=== PATIENT | male | born 1995 | race Two or more races ===

== ENCOUNTER 2019-12-01 16:14 | Emergency (ER) | payer SELFPAY ==
[2019-12-01 16:31] VITALS: BP 163/97
[2019-12-01] MEDS ORDERED: predniSONE 20 MG TABLET PO STA (17:00)
[2019-12-01] MEDS ORDERED: CYCLOBENZAPRINE 10 MG TABLET PO STA (17:00)
[2019-12-01] MEDS ORDERED: HYDROcod/ACETAM 5/325 MG TABLET PO STA (17:00)
--- NOTE | 2019-12-01 17:03 | ED Physician Documentation ---
PD HPI BACK PAIN - Stated complaint Stated Complaint: BACK/RT LEG PX - Chief complaint Chief Complaint: Back Pain - History obtained from History obtained from: Patient, Friend, Other (cyracom tablet) - Additional information Additional information: For about 2 weeks he has had right-sided back pain radiating down into the right buttock. There is some numbness in that leg. He denies saddle anesthesia or incontinence but the Pain does radiate into the right testicle. No fevers or chills. No recent injuries. Review of Systems Constitutional: reports: Reviewed and negative Eyes: reports: Reviewed and negative Ears: reports: Reviewed and negative Nose: reports: Reviewed and negative Throat: reports: Reviewed and negative PD PAST MEDICAL HISTORY - Present Medications Home Medications: Ambulatory Orders Medication Instructions Recorded Confirmed Cyclobenzaprine [Flexeril] 10 mg PO TID PRN #20 tablet 12/01/19 Hydrocodone/Acetaminophen 1 - 2 tab PO Q6H PRN #15 tablet 12/01/19 [Hydrocodone-Acetamin 5-325 mg] predniSONE [Deltasone] 20 mg PO [id number] #21 tab 12/01/19 PD ED PE NORMAL - Vitals Vital signs reviewed: Yes - General General: Alert and oriented X 3, No acute distress - Male Male : Other (Normal male genitalia, no hernia mass, no testicular tenderness or swelling.) - Back Back: No spinal TTP - Extremities Extremities: Other (Mildly decreased sensation in the right thigh compared to the left, also diminished right L4 reflex compared to the left. Gait is normal.) - Neuro Neuro: Alert and oriented X 3, Normal speech Results - Vitals Vitals: Vital Signs - 24 hr 12/01/19 16:21 Temperature 37 C Heart Rate 77 Respiratory 18 Rate Blood Pressure 163/97 H O2 Saturation 97 Oxygen O2 Source Room air PD MEDICAL DECISION MAKING - ED course ED course: This patient has seemingly uncomplicated musculoskeletal back pain. The patient has no "red flags." Specifically denies IV drug use, fevers, incontinence, saddle anesthesia. Spinal epidural abscess was considered, given that the patient has no fever, is not diabetic, has no spinal tenderness, does not use IV drugs, and has no bilateral neurologic symptoms, the diagnosis of spinal epidural abscess is considered exceedingly unlikely. Departure - Departure Disposition: 01 Home, Self Care Clinical Impression: Right sided sciatica Condition: Good Record reviewed to determine appropriate education?: Yes Instructions: ED Sciatica Follow-Up: [facility] [Provider Group] Prescriptions: predniSONE [Deltasone] 20 mg PO [id number] #21 tab Cyclobenzaprine [Flexeril] 10 mg PO TID PRN #20 tablet PRN Reason: Spasms Hydrocodone/Acetaminophen [Hydrocodone-Acetamin 5-325 mg] 1 - 2 tab PO Q6H PRN #15 tablet PRN Reason: Pain Forms: Activity restrictions
== END 2019-12-01 17:23 | disposition home or self-care (01) ==
LOC: ED 16:14
DX: M54.31 Sciatica, right side (principal); N50.811 Right testicular pain
CPT/HCPCS: 99283; 99284; A9270; J7512

== ENCOUNTER 2020-02-23 02:56 | Emergency (ER) | payer SELFPAY ==
[2020-02-23] MEDS: KETOROLAC 30 MG/ML VIAL IVP STA (04:13)
[2020-02-23 04:15] LABS: BASOPHILS # (AUTO) 0.1 10^3/uL (0.0-0.1); BASOPHILS % (AUTO) 0.6 %; EOSINOPHILS # (AUTO) 0.1 10^3/uL (0.0-0.7); EOSINOPHILS % (AUTO) 1.7 %; HGB - HEMOGLOBIN 16.3 g/dL (14.0-18.0); LYMPHOCYTES # (AUTO) 3.4 10^3/uL (1.5-3.5); LYMPHOCYTES % (AUTO) 40.8 %; MEAN CORPUSCULAR HEMOGLOBIN 31.3 pg (27.0-31.0); MEAN CORPUSCULAR VOLUME 89.6 fL (80.0-94.0); MEAN PLATELET VOLUME 9.5 fL (7.4-11.4); MONOCYTES # (AUTO) 0.7 10^3/uL (0.0-1.0); MONOCYTES % (AUTO) 8.9 %; NEUTROPHILS % (AUTO) 47.8 %; PLT - PLATELET COUNT 229 10^3/uL (130-450); WHITE BLOOD COUNT 8.4 x10^3/uL (4.8-10.8)
[2020-02-23] MEDS: diazePAM INJ 5 MG/ML SYRINGE IVP STA (04:15)
[2020-02-23] MEDS: SODIUM CHLORIDE 0.9% 1,000 ML IV STA (04:23)
[2020-02-23 04:27] LABS: ALBUMIN 4.2 g/dL (3.2-5.5); ALBUMIN/GLOBULIN RATIO 1.4 (1.0-2.2); BILIRUBIN,TOTAL 0.9 mg/dL (0.2-1.0); CALCIUM 9.2 mg/dL (8.5-10.3); CREATININE 0.8 mg/dL (0.6-1.2); TOTAL PROTEIN 7.2 g/dL (6.7-8.2)
--- NOTE | 2020-02-23 05:04 | ED Physician Documentation ---
History of Present Illness - Stated complaint Stated Complaint: NECK PX - Chief complaint Chief Complaint: General - History obtained from History obtained from: Patient - Additonal information Additional information: Patient comes emergency department complaining of tension in his right back and neck and a right-sided headache. The patient states he has pain radiating down both legs. He states he was trying to sleep tonight when he woke up feeling that his whole body was cold and tingling. He states he had a pain in his right arm and that because of his headache he could not go back to sleep. He denies cough, fever, shortness of breath, chest pain, or abdominal symptoms. He states he has had feeling somewhat similar to this before, but this is the first time he has had the whole body tingling and numbness. Patient states he is afraid to go back to sleep because he is afraid his neck and head will keep hurting. The patient states he is under a lot of stress because he has just come to the [facility] in July and is still waiting to hear whether asylum will be granted him. He is from [place] and most of his family is back in [place] and he worries about them a lot. Patient states he has an aunt who lives here and that he has lived both with her and with friends. Patient states he has not yet been able to get a job and he is stressed about finances. He is otherwise h ealthy. He does not take any medications for anything. No other complaints at this time. Patient is able to control his bowels and bladder. He has not been around any sick contacts. Patient is Tongan-speaking only and entire HPI is taken through data report analyst. Review of Systems Ten Systems: 10 systems reviewed and negative Constitutional: reports: Chills. denies: Fever Eyes: reports: Reviewed and negative Ears: reports: Reviewed and negative Nose: reports: Reviewed and negative Throat: reports: Reviewed and negative Cardiac: reports: Reviewed and negative. denies: Chest pain / pressure Respiratory: reports: Reviewed and negative. denies: Dyspnea GI: reports: Reviewed and negative : reports: Reviewed and negative Skin: reports: Reviewed and negative Musculoskeletal: reports: Neck pain, Back pain Neurologic: reports: Numbness, Headache. denies: Generalized weakness, Focal weakness Psychiatric: reports: Reviewed and negative Endocrine: reports: Reviewed and negative Immunocompromised: reports: Reviewed and negative PD PAST MEDICAL HISTORY - Past Medical History : Kidney stones - Past Surgical History Past Surgical History: No - Present Medications Home Medications: Ambulatory Orders Medication Instructions Recorded Confirmed No Known Home Medications 02/23/20 02/23/20 - Allergies Allergies/Adverse Reactions: Allergies Allergy/AdvReac Type Severity Reaction Status Date / Time No Known Drug Allergies Allergy Verified 02/23/20 03:16 - Social History Does the pt smoke?: No Smoking Status: Never smoker Does the pt drink ETOH?: Yes Does the pt have substance abuse?: No PD ED PE NORMAL - Vitals Vital signs reviewed: Yes - General General: Alert and oriented X 3, Well developed/nourished, Other (Patient appears mildly anxious, but otherwise in no apparent distress.) - HEENT HEENT: PERRL - Neck Neck: Supple, no meningeal sign - Cardiac Cardiac: RRR, No murmur - Respiratory Respiratory: No respiratory distress, Clear bilaterally - Abdomen Abdomen: Soft, Non tender, Non distended - Back Back: No spinal TTP, Other (Muscle tension and diffuse tenderness noted over entire right back musculature, extending up into the patient's right neck. No bony tenderness. No nuchal rigidity.) - Derm Derm: Normal color, Warm and dry, No rash - Extremities Extremities: No deformity, No edema, No calf tenderness / cord - Neuro Neuro: Alert and oriented X 3, cable engineer 2-12 intact, No motor deficit, No sensory deficit, Normal speech - Psych Psych: Normal affect, Other (Mild anxiety.) Results - Vitals Vitals: Vital Signs - 24 hr 02/23/20 02/23/20 03:00 04:41 Temperature 36.4 C L 36.8 C Heart Rate 78 63 Respiratory 18 16 Rate Blood Pressure 175/97 H 127/70 O2 Saturation 98 98 Oxygen O2 Source Room air - Labs Labs: Laboratory Tests 02/23/20 02/23/20 02/23/20 04:07 04:07 04:07 WBC 8.4 RBC 5.20 Hgb 16.3 Hct 46.6 MCV 89.6 MCH 31.3 H MCHC 35.0 RDW 12.0 Plt Count 229 MPV 9.5 Neut # (Auto) 4.0 Lymph # (Auto) 3.4 [place] # (Auto) 0.7 Eos # (Auto) 0.1 Baso # (Auto) 0.1 Absolute Nucleated RBC 0.00 Nucleated RBC % 0.0 Sodium 136 Potassium 3.5 Chloride 99 L Carbon Dioxide 24 Anion Gap 13.0 BUN 14 Creatinine 0.8 Estimated GFR (MDRD) 119 Glucose 95 Calcium 9.2 Total Bilirubin 0.9 AST 21 ALT 29 Alkaline Phosphatase 78 Total Protein 7.2 Albumin 4.2 Globulin 3.0 Albumin/Globulin Ratio 1.4 Lipase 26 TSH 3.75 PD MEDICAL DECISION MAKING - ED course Complexity details: reviewed old records, reviewed results, re-evaluated patient, considered differential, d/w patient ED course: I discussed with the patient via data report analyst that his symptoms do not indicate a serious condition, and I suspect that the patient is suffering from quite a bit of stress and anxiety over the various issues and uncertainties in his life. I have advised the patient over the course of a very long conversation that I will treat him symptomatically and that I will also check basic blood work to make sure that there is not something else going that we could touch. However, I suspect his work-up will be negative. The patient also has been stressed out because he was given some paperwork for insurance the last time he was here but could not read it as he does not speak any [place], and was not able to turn it in. Ultimately, he lost the paperwork, and he is very concerned about not being able to pay his bill. I have discussed with the patient that we have liaisons here at the hospital who can help him with his financial concerns and services that can reduce his bill. The patient has received a liter of IV fluid here, as well as Toradol and Valium and is feeling better. His labs are unremarkable. I have given him 3 separate resource sheets, including one for Tongan-speaking resources here in the hospital. We have discussed home management of the symptoms, as well the usual indications for return. Departure - Departure Disposition: 01 Home, Self Care Clinical Impression: Tension headache, Neck muscle spasm, Back spasm, Anxiety Sciatica Qualifiers: Laterality: right Qualified Code(s): M54.31 - Sciatica, right side Condition: Stable Instructions: ED Stress React, ED Spasm Back No Trauma, ED Headache Tension, ED Sciatica Comments: All of your tests look good. I think most of the symptoms you are experiencing are from stress and anxiety. Please contact the resources you have been given for Tongan speaking individuals for help getting settled here and finding the support you need. Elida leah analisis de be se zachariah ceci. Creo que la majoria de los sintomas que esta experimentando se deben al estres y la ansiedad. Por favor comuniquese con los recursos que se le degroot proporcionado para personas de habla hispana para que lo ayuden a estabecerse aqui y encontrar el apoyo que necesita.
[2020-02-23 05:35] VITALS: BP 116/82
== END 2020-02-23 05:35 | disposition home or self-care (01) ==
LOC: ED 02:56
DX: M54.31 Sciatica, right side (principal); F41.9 Anxiety disorder, unspecified; G44.209 Tension-type headache, unspecified, not intractable; Z63.79 Other stressful life events affecting family and household
CPT/HCPCS: 36415; 80053; 83690; 84443; 85025; 96361; 96374; 96375; 99284

== ENCOUNTER 2020-03-19 15:23 | Emergency (ER) | payer SELFPAY ==
[2020-03-19] MEDS ORDERED: KETOROLAC 30 MG/ML VIAL IVP STA (15:49)
[2020-03-19] MEDS ORDERED: LORazepam 2 MG/ML VIAL IVP STA (15:49)
--- NOTE | 2020-03-19 15:52 | ED Physician Documentation ---
PD HPI BACK PAIN - Stated complaint Stated Complaint: LOW BACK PX - History obtained from History obtained from: Patient - Additional information Additional information: Gentleman with benign past medical history presents for a multitude of complaints. History was taken with the aid of a R2integrated language interpreter, [id number] and also reviewed the chart. He is gentleman who is here from [facility], he has had 2 years of right-sided intermittent testicular pain associated with dysuria. He has had subacute right-sided back pain "sciatica" and dysuria. He denies weight loss. When asked which of these sites hurts the most of the headache, back pain, testicular pain he is unable to state which is the worst. He states that they are all the worse. Previous work-ups and visits have been benign. Review of Systems Ten Systems: 10 systems reviewed and negative Constitutional: reports: Fever (tactile last night), Fatigue Ears: denies: Ear pain Nose: denies: Rhinorrhea / runny nose Cardiac: denies: Chest pain / pressure, Palpitations Respiratory: denies: Dyspnea, Cough GI: denies: Nausea, Vomiting : reports: Dysuria PD PAST MEDICAL HISTORY - Past Medical History : Kidney stones - Past Surgical History Past Surgical History: No - Present Medications Home Medications: Ambulatory Orders Medication Instructions Recorded Confirmed Gabapentin [Neurontin] 300 mg PO TID #30 capsule 03/19/20 - Allergies Allergies/Adverse Reactions: Allergies Allergy/AdvReac Type Severity Reaction Status Date / Time No Known Drug Allergies Allergy Verified 02/23/20 03:16 - Social History Does the pt smoke?: No Smoking Status: Never smoker Does the pt drink ETOH?: Yes Does the pt have substance abuse?: No PD ED PE NORMAL - Vitals Vital signs reviewed: Yes - General General: Alert and oriented X 3, Other (When talking he appears very comfortable but when he is not talking he is writhing in pain and moaning.) - HEENT HEENT: PERRL, EOMI - Neck Neck: Supple, no meningeal sign, No bony TTP - Cardiac Cardiac: RRR, No murmur - Respiratory Respiratory: No respiratory distress, Clear bilaterally - Abdomen Abdomen: Normal bowel sounds, Soft, Non tender - Male Male : Other (Normal scrotal exam) - Back Back: No CVA TTP, No spinal TTP, Other (TTP R low back muscular) - Derm Derm: Normal color, Warm and dry - Extremities Extremities: Other (The patient has equal and normal Achilles and patellar reflexes bilaterally. Normal sensation in all areas of the legs. Patient denies saddle anesthesia. Normal strength in flexion-extension at the ankles, knees, and flexion of the hips.) - Neuro Neuro: Alert and oriented X 3, Normal speech Results - Vitals Vitals: Vital Signs - 24 hr 03/19/20 03/19/20 03/19/20 15:39 16:06 16:35 Temperature 36.4 C L Heart Rate 74 67 75 Respiratory 18 18 18 Rate Blood Pressure 158/112 H 121/78 123/63 O2 Saturation 100 95 98 03/19/20 03/19/20 16:53 17:41 Temperature 36.4 C L Heart Rate 66 69 Respiratory 18 16 Rate Blood Pressure 104/60 122/65 O2 Saturation 98 100 Oxygen O2 Source Room air - Labs Labs: Laboratory Tests 03/19/20 03/19/20 03/19/20 16:00 16:00 16:00 WBC 6.9 RBC 5.06 Hgb 16.0 Hct 44.7 MCV 88.3 MCH 31.6 H MCHC 35.8 RDW 11.7 L Plt Count 221 MPV 10.0 Neut # (Auto) 3.5 Lymph # (Auto) 2.7 [place] # (Auto) 0.6 Eos # (Auto) 0.1 Baso # (Auto) 0.0 Absolute Nucleated RBC 0.00 Nucleated RBC % 0.0 ESR 1 Sodium 138 Potassium 3.7 Chloride 103 Carbon Dioxide 24 Anion Gap 11.0 BUN 20 Creatinine 1.0 Estimated GFR (MDRD) 91 Glucose 91 Calcium 9.1 Total Bilirubin 0.7 AST 25 ALT 28 Alkaline Phosphatase 81 C-Reactive Protein < 1.0 Total Protein 7.3 Albumin 4.6 Globulin 2.7 Albumin/Globulin Ratio 1.7 Lipase 26 Urine Color Urine Clarity Urine pH Ur Specific [place] Urine Protein Urine Glucose (UA) Urine Ketones Urine Occult Blood Urine Nitrite Urine Bilirubin Urine Urobilinogen Ur Leukocyte Esterase Ur Microscopic Review Urine Culture Comments Urine Opiates Screen Ur Oxycodone Screen Urine Methadone Screen Ur Propoxyphene Screen Ur Barbiturates Screen Ur Tricyclics Screen Ur Phencyclidine Scrn Ur Amphetamine Screen U Methamphetamines Scrn U Benzodiazepines Scrn Urine Cocaine Screen U Cannabinoids Screen 03/19/20 17:40 WBC RBC Hgb Hct MCV MCH MCHC RDW Plt Count MPV Neut # (Auto) Lymph # (Auto) Harris # (Auto) Eos # (Auto) Baso # (Auto) Absolute Nucleated RBC Nucleated RBC % ESR Sodium Potassium Chloride Carbon Dioxide Anion Gap BUN Creatinine Estimated GFR (MDRD) Glucose Calcium Total Bilirubin AST ALT Alkaline Phosphatase C-Reactive Protein Total Protein Albumin Globulin Albumin/Globulin Ratio Lipase Urine Color YELLOW Urine Clarity CLEAR Urine pH 7.5 Ur Specific [place] 1.020 Urine Protein NEGATIVE Urine Glucose (UA) NEGATIVE Urine Ketones NEGATIVE Urine Occult Blood NEGATIVE Urine Nitrite NEGATIVE Urine Bilirubin NEGATIVE Urine Urobilinogen 1 (NORMAL) Ur Leukocyte Esterase NEGATIVE Ur Microscopic Review NOT INDICATED Urine Culture Comments NOT INDICATED Urine Opiates Screen NEGATIVE Ur Oxycodone Screen NEGATIVE Urine Methadone Screen NEGATIVE Ur Propoxyphene Screen NEGATIVE Ur Barbiturates Screen NEGATIVE Ur Tricyclics Screen NEGATIVE Ur Phencyclidine Scrn NEGATIVE Ur Amphetamine Screen NEGATIVE U Methamphetamines Scrn NEGATIVE U Benzodiazepines Scrn POSITIVE H Urine Cocaine Screen NEGATIVE U Cannabinoids Screen POSITIVE H PD MEDICAL DECISION MAKING - ED course ED course: 25-year-old gentleman presents with subacute widespread complaints. Previous work-ups have suggested some level of anxiety. He always looks very comfortable when not interacting with him, talking on the phone, but when at the bedside if he is not talking he has excessive pain behavior. Given the lack of timely primary care follow-up a thorough work-up was done demonstrating normal labs including inflammatory markers, normal scrotal ultrasound, head CT with and without contrast and abdominal CT which were normal except for the possibility of an enlarged pituitary. Outpatient MRI is recommended. He is to continue his efforts to try to obtain timely primary care follow-up. Follow-up with conversation with hourly sign language interpreter [id number], he had extensive questions about insurance and getting in with primary care. We will have registration, talk to him about that. He felt much better though after the Toradol and Valium he was given here and is prescribed gabapentin. Departure - Departure Disposition: 01 Home, Self Care Clinical Impression: Anxiety, Tension headache, Right testicular pain Back pain Qualifiers: Back pain location: low back pain Chronicity: chronic Back pain laterality: right Sciatica presence: with sciatica Sciatica laterality: sciatica of right side Qualified Code(s): M54.41 - Lumbago with sciatica, right side Condition: Good Record reviewed to determine appropriate education?: Yes Instructions: ED Stress React, ED Sciatica Prescriptions: Gabapentin [Neurontin] 300 mg PO TID #30 capsule Comments: Your work-up today all looks great. All of your labs including inflammatory markers are normal. Ultrasound of your scrotum and testicle are normal. CAT scan of your head back and stomach are normal with the exception of a possibility of a large pituitary gland. You need to follow-up with a primary care physician to discuss an MRI of your head. We are not able to do this out of the emergency department. Return if worsening. Tu trabajo de pina cortez genial. Todos leah anlisis de laboratorio, incluidos los marcadores inflamatorios, son normales. La ecografa de camilo escroto y testculo es normal. La tomografa computarizada de la edmond, la espalda y el estmago son normales con la excepcin de la posibilidad de judith glndula pituitaria patricia. Debe hacer un seguimiento con un mdico de atencin primaria para analizar judith resonancia magntica de camilo edmond. No podemos hacer esto fuera del departamento de emergencias. Regrese si empeora.
[2020-03-19 16:10] LABS: BASOPHILS % (AUTO) 0.4 %; EOSINOPHILS # (AUTO) 0.1 10^3/uL (0.0-0.7); EOSINOPHILS % (AUTO) 1.2 %; LYMPHOCYTES # (AUTO) 2.7 10^3/uL (1.5-3.5); LYMPHOCYTES % (AUTO) 38.7 %; MEAN CORPUSCULAR HEMOGLOBIN 31.6 pg (27.0-31.0); MEAN CORPUSCULAR HGB CONC 35.8 g/dL (32.0-36.0); MEAN CORPUSCULAR VOLUME 88.3 fL (80.0-94.0); MONOCYTES # (AUTO) 0.6 10^3/uL (0.0-1.0); NEUTROPHILS # (AUTO) 3.5 10^3/uL (1.5-6.6); NEUTROPHILS % (AUTO) 51.3 %; PLT - PLATELET COUNT 221 10^3/uL (130-450); RED BLOOD COUNT 5.06 10^6/uL (4.70-6.10); RED CELL DISTRIBUTION WIDTH 11.7 % (12.0-15.0); WHITE BLOOD COUNT 6.9 x10^3/uL (4.8-10.8)
[2020-03-19] MEDS ORDERED: IOVERSOL 320 100 ML VIAL IVP ONE (16:11)
[2020-03-19 16:29] LABS: ALBUMIN 4.6 g/dL (3.2-5.5); ALBUMIN/GLOBULIN RATIO 1.7 (1.0-2.2); ALKALINE PHOSPHATASE 81 IU/L (42-121); ALT ALANINE AMINOTRANSFERASE 28 IU/L (10-60); AST ASPARTATE AMINOTRANSFERASE 25 IU/L (10-42); BILIRUBIN,TOTAL 0.7 mg/dL (0.2-1.0); BUN - BLOOD UREA NITROGEN 20 mg/dL (6-20); CALCIUM 9.1 mg/dL (8.5-10.3); CARBON DIOXIDE - CO2 24 mmol/L (21-32); CHLORIDE 103 mmol/L (101-111); GLUCOSE 91 mg/dL (70-100); LIPASE 26 U/L (22-51); SODIUM 138 mmol/L (135-145); TOTAL PROTEIN 7.3 g/dL (6.7-8.2)
[2020-03-19 16:34] LABS: CRP - C-REACTIVE PROTEIN < 1.0 mg/dL (0-1.0)
--- NOTE | 2020-03-19 17:23 | Ultrasound Report ---
PROCEDURE: Testicle w/Doppler INDICATIONS: R testicle pain TECHNIQUE: Real-time scanning was performed of the scrotum and testicles, with image documentation. Color and p ulse Doppler interrogation was performed of both testicles. COMPARISON: None. FINDINGS: Right: Testicle is normal in size at 4.9 x 2.2 x 2.9 cm, and homogenous in echotexture. Epididymis is normal in overall size and morphology. No hydrocele or varicoceles. Overlying scrotal skin is no rmal in thickness. Left: Testicle is normal in size at 4.5 x 2.0 x 2.6 cm, and homogeneous in echotexture. Epididymis is normal in overall size and morphology. No hydrocele or varicoceles. Overlying scrotal skin is no rmal in thickness. Doppler: Color and pulse Doppler demonstrate normal and symmetric arterial flow in both testicles. IMPRESSION: No sign of testicular mass or inflammation is present. No hydrocele or varicocele is found. Source of asymmetric right-sided testicular pain is not identified. The epididymis appears normal bilaterally also. Reviewed by: Frankie Morel MD on 03/19/2020 5:22 PM PST Approved by: Frankie Morel MD on 03/19/2020 5:22 PM PST Station ID: [id number]
[2020-03-19 17:46] LABS: MUDS CUTOFF CONCENTRATIONS CUTOFF CONC BELOW:
[2020-03-19 17:51] LABS: BILIRUBIN,URINE NEGATIVE (NEGATIVE); GLUCOSE, URINE (UA) NEGATIVE (NEGATIVE); KETONES,URINE (UA) NEGATIVE (NEGATIVE); LEUKOCYTE ESTERASE, URINE NEGATIVE (NEGATIVE); NITRITE,URINE NEGATIVE (NEGATIVE); OCCULT BLOOD,URINE NEGATIVE (NEGATIVE); PH,URINE 7.5 PH (5.0-7.5); PROTEIN,URINE NEGATIVE (NEGATIVE); UROBILINOGEN,URINE 1 (NORMAL) E.U./dL (NORMAL)
[2020-03-19 17:53] LABS: CLARITY,URINE CLEAR (CLEAR)
[2020-03-19 18:02] LABS: AMPHETAMINE SCREEN,URINE NEGATIVE (NEGATIVE); BENZODIAZEPINES SCREEN, URINE POSITIVE (NEGATIVE); COCAINE SCREEN URINE NEGATIVE (NEGATIVE); METHADONE SCREEN, URINE NEGATIVE (NEGATIVE); METHAMPHETAMINES SCREEN, URINE NEGATIVE (NEGATIVE); OPIATE SCREEN, URINE NEGATIVE (NEGATIVE); OXYCODONE SCREEN, URINE NEGATIVE (NEGATIVE); PROPOXYPHENE SCREEN, URINE NEGATIVE (NEGATIVE); TRICYCLIC ANTIDEPRESSANT,URINE NEGATIVE (NEGATIVE)
--- NOTE | 2020-03-19 18:02 | CT Report ---
PROCEDURE: HEAD W/WO INDICATIONS: headache TECHNIQUE: 4.5 mm thick angled axial sections acquired from the foramen magnum to the vertex before and after th e administration of intravenous contrast. For radiation dose reduction, the following was used: aut omated exposure control, adjustment of mA and/or kV according to patient size. CONTRAST: IV CONTRAST: Optiray 320 ml: 100 PO CONTRAST: *NO PO CONTRAST COMPARISON: None. FINDINGS: Image quality: Excellent. CSF Spaces: Basal cisterns are patent. No extra-axial fluid collections. Ventricles are normal in size and shape. Brain: Abnormal hyperdensity within enlarged right pituitary gland is seen and show no definite cont rast enhancement in this area. 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 No midline shift. No ot her intracranial bleeds or masses. No abnormal intracranial enhancement. Kan-white interface appea rs normal. Skull and face: Calvarium and visualized facial bones appear intact, without suspicious lesions. Sinuses: Visualized sinuses and mastoids are clear. IMPRESSION: 1. Hyperdensity within the slightly enlarged pituitary gland and show no definite contrast enhancemen t suspicious for pituitary apoplexy, suggest clinical correlation. 2. No other area of intracranial bleed, midline shift or significant mass effect. No area of abnormal intracranial contrast enhancement. Reviewed by: El Mariano MD on 03/19/2020 6:01 PM PST Approved by: El Mariano MD on 03/19/2020 6:01 PM PST Station ID: [id number]
--- NOTE | 2020-03-19 18:04 | CT Report ---
PROCEDURE: Abdomen/Pelvis W INDICATIONS: IV only abd/back pain CONTRAST: IV CONTRAST: Optiray 320 ml: 100 PO CONTRAST: *NO PO CONTRAST TECHNIQUE: After the administration of IV contrast, 5 mm thick sections acquired from the diaphragms to the symp hysis. 5 mm thick coronal and sagittal reformats were acquired. For radiation dose reduction, the f ollowing was used: automated exposure control, adjustment of mA and/or kV according to patient size. COMPARISON: None. FINDINGS: Image quality: Excellent. ABDOMEN: Lung bases: Lung bases are clear. Heart size is normal. Solid organs: Liver and spleen are normal in size and enhancement. Gallbladder is contracted and sh ows no gross abnormality. Biliary system is non dilated. Pancreas enhances normally. No adrenal no dules. Kidneys demonstrate normal size and enhancement, without hydronephrosis. Peritoneum and bowel: Bowel loops demonstrate normal wall thickness and caliber. No free fluid or a ir. Nodes and vessels: No retroperitoneal or mesenteric adenopathy by size criteria. Aorta and inferior vena cava are normal in size. Miscellaneous: No ventral hernias. PELVIS: Genitourinary: Bladder wall thickness is normal. Miscellaneous: No inguinal hernias or adenopathy. Bones: No suspicious bony lesions. No vertebral body compression fractures. IMPRESSION: 1. No acute solid organ injury within abdomen or pelvis. No acute inflammatory process within abdomen or pelvis. Normal appendix. No free fluid or free air. 2. No renal stones or hydronephrosis. 3. No gross acute fracture or dislocation is seen in abdomen or pelvis. Reviewed by: El Mariano MD on 03/19/2020 6:03 PM PST Approved by: El Mariano MD on 03/19/2020 6:03 PM PST Station ID: [id number]
[2020-03-19 18:49] VITALS: BP 124/71
[2020-03-20] MEDS ORDERED: IOVERSOL 320 100 ML VIAL IVP ONE (09:29)
== END 2020-03-19 19:02 | disposition home or self-care (01) ==
LOC: ED 15:23
DX: N50.811 Right testicular pain (principal); G44.209 Tension-type headache, unspecified, not intractable; M54.41 Lumbago with sciatica, right side; F41.9 Anxiety disorder, unspecified
CPT/HCPCS: 70470; 74177; 76870; 80053; 80306; 81003; 83690; 85025; 85651; 86140; 93975; 96374; 99284; J2060; Q9967; 36415; 81001; 87086

== ENCOUNTER 2020-05-03 23:08 | Outpatient (CLI) | payer SELFPAY | END 2020-05-03 23:09 | disposition critical access hospital (66) | LOC: EMS 23:08 | PROVIDERS: ATTEND Surgery | DX: M54.5 Low back pain (principal); R10.9 Unspecified abdominal pain; R11.0 Nausea | CPT/HCPCS: A0425; A0427 ==

== ENCOUNTER 2020-05-03 23:51 | Emergency (ER) | payer SELFPAY ==
[2020-05-04] MEDS ORDERED: KETOROLAC 60 MG/2 ML VIAL IM STA (00:05)
[2020-05-04] MEDS ORDERED: HYDROmorphone 1 MG/ML CARPUJECT IM STA (00:05)
--- NOTE | 2020-05-04 00:33 | ED Physician Documentation ---
History of Present Illness - Stated complaint Stated Complaint: FLANK PAIN - Chief complaint Chief Complaint: Abd Pain - History obtained from History obtained from: Patient, EMS - Additonal information Additional information: Patient is brought to the emergency department by EMS for chief complaint of back pain. He states he feels as though something is inside of his back moving from side to side and that he feels a sensation of something feeling up with air and then letting the air out and then feeling up with the air again. Patient denies any specific trauma. He states that the pain occasionally radiates through to his abdomen. He states he feels the urge to urinate but cannot put any urine out. Patient states he has been to the emergency department a few times for this previously and has a follow-up appointment coming up tomorrow with his PCP. No other complaints at this time. Review of prior records reveals patient has been seen here within the last couple of months and was gi zachariah a prescription for gabapentin at that time. Extensive work-up was done during that visit and was all negative. Review of Systems Ten Systems: 10 systems reviewed and negative Constitutional: reports: Reviewed and negative Eyes: reports: Reviewed and negative Ears: reports: Reviewed and negative Nose: reports: Reviewed and negative Throat: reports: Reviewed and negative Cardiac: reports: Reviewed and negative Respiratory: reports: Reviewed and negative GI: reports: Reviewed and negative : reports: Reviewed and negative Skin: reports: Reviewed and negative Musculoskeletal: reports: Back pain Neurologic: reports: Reviewed and negative Psychiatric: reports: Reviewed and negative Endocrine: reports: Reviewed and negative Immunocompromised: reports: Reviewed and negative PD PAST MEDICAL HISTORY - Past Medical History : Kidney stones - Past Surgical History Past Surgical History: No - Present Medications Home Medications: Ambulatory Orders Medication Instructions Recorded Confirmed Gabapentin [Neurontin] 300 mg PO TID #30 capsule 03/19/20 05/04/20 Cyclobenzaprine HCl 5 mg PO PRN PRN 05/04/20 05/04/20 Ibuprofen [Motrin] 800 mg PO PRN PRN 05/04/20 05/04/20 - Allergies Allergies/Adverse Reactions: Allergies Allergy/AdvReac Type Severity Reaction Status Date / Time No Known Drug Allergies Allergy Verified 05/04/20 00:09 - Social History Does the pt smoke?: No Smoking Status: Never smoker Does the pt drink ETOH?: Yes Does the pt have substance abuse?: No - Immunizations Immunizations are current?: Yes - POLST Patient has POLST: No PD ED PE NORMAL - Vitals Vital signs reviewed: Yes - General General: Alert and oriented X 3, No acute distress, Well developed/nourished - HEENT HEENT: Atraumatic, PERRL, EOMI, Moist mucous membranes - Neck Neck: Supple, no meningeal sign - Cardiac Cardiac: RRR, No murmur, Strong equal pulses - Respiratory Respiratory: No respiratory distress, Clear bilaterally - Abdomen Abdomen: Soft, Non tender, Non distended - Back Back: No spinal TTP, Other (Diffuse bilateral lumbar paraspinal muscular tenderness and CVA tenderness.) - Derm Derm: Normal color, Warm and dry, No rash - Extremities Extremities: No deformity, No edema, No calf tenderness / cord - Neuro Neuro: Alert and oriented X 3, promotional model 2-12 intact, Normal speech, Other (Grossly intact otherwise) - Psych Psych: Other (Patient is very anxious, writhing and grimacing.) Results - Vitals Vitals: Vital Signs - 24 hr 05/03/20 05/04/20 05/04/20 23:50 00:00 02:34 Temperature 35.7 C L Heart Rate 83 97 87 Respiratory 22 16 16 Rate Blood Pressure 149/120 H 154/104 H 141/93 H O2 Saturation 99 100 96 Oxygen O2 Source Room air - Rads (name of study) CT abd/pelvis Radiology: Final report received, EMP read indepedently, See rad report (neg) PD MEDICAL DECISION MAKING - ED course Complexity details: reviewed old records, reviewed results, re-evaluated patient, considered differential, d/w patient ED course: The patient appeared uncomfortable but well overall, and was otherwise healthy. His pain sounded more musculoskeletal in nature, but given that he was Kyrgyz- speaking only and seem to be in quite an anxious and uncomfortable state, I did send him for CT scan of the abdomen and pelvis. This was found to be negative. The patient was given doses of Toradol and Dilaudid here in the emergency department. Clinically, he seemed much better, though still somewhat anxious. His CT scan is unremarkable. I discussed with him that it is important for him to follow-up with his primary care physician, as he has repeatedly been advised to do on visits here, to discuss MRI and other possible treatments of the patient's symptoms. The patient states he has an appointment with Jordin Majano tomorrow I have encouraged him strongly to keep this. Departure - Departure Disposition: 01 Home, Self Care Clinical Impression: Back pain Qualifiers: Back pain location: low back pain Chronicity: acute Back pain laterality: bilateral Sciatica presence: without sciatica Qualified Code(s): M54.5 - Low back pain Condition: Stable Instructions: ED Neck Back Pain General Follow-Up: GILSON CHRISTOPHER MD [Physician No Access] - ANAHI VEGA MD [Provider Admit Priv/Credential] - Jose Luis Dubois MD [Provider Admit Priv/Credential] - Print Language: Kyrgyz Comments: No emergent cause of your pain is been found today. You most likely have inflammation in the muscular and spinal structures, which is why you have pain with movement. It is very important that you follow-up in primary care for further evaluation of your back pain. Discharge Date/Time: 05/04/20 02:48
[2020-05-04] MEDS ORDERED: KETOROLAC 30 MG/ML VIAL IVP STA (00:35)
[2020-05-04 02:53] VITALS: BP 141/93
--- NOTE | 2020-05-04 09:56 | CT Report ---
PROCEDURE: Abdomen/Pelvis WO INDICATIONS: flank pain TECHNIQUE: Noncontrast 5 mm thick sections acquired from the diaphragms to the symphysis. 5 mm coronal and sagi ttal reformats were then performed. For radiation dose reduction, the following was used: automated exposure control, adjustment of mA and/or kV according to patient size. COMPARISON: None. FINDINGS: Image quality: Excellent. ABDOMEN: Lung bases: Lung bases are clear. 4 mm nodule noted in the left lung base (series 4, image 23). 2 mm and 1 mm nodules noted in the left lower lobe (series 4, image 15). 3 mm nodule noted in the right l delfin base (series 4, image 25). Heart size is normal. Solid organs: Liver and spleen are normal in size. Gallbladder is normal Pancreas is normal in con tours. No adrenal nodules. Kidneys are normal in size, without hydronephrosis or nephrolithiasis. Peritoneum and bowel: Unenhanced bowel loops demonstrate normal wall thickness and caliber. No free fluid or air. Appendix is normal. Nodes and vessels: No retroperitoneal or mesenteric adenopathy by size criteria. Prominent lymph nod es which do not meet pathologic size criteria noted in the right lower quadrant mesentery. Aorta and inferior vena cava are normal in caliber. Miscellaneous: No ventral hernias. PELVIS: Genitourinary: Bladder wall thickness is normal. Miscellaneous: No inguinal hernias or adenopathy. Bones: No suspicious bony lesions. No vertebral body compression fractures. IMPRESSION: 1. No renal stone. 2. No hydronephrosis. 3. No free fluid or free air. 4. No dilated loops of bowel. 5. Prominent lymph nodes in the right lower quadrant mesentery. Finding is nonspecific but in the marisol ropriate clinical setting could represent mesenteric adenitis. 6. Small bibasilar lung nodules. Largest nodule measures 4 mm. Recommend optional follow-up CT scan i n 12 months based on criteria outlined below if clinically indicated. Fleischner Society criteria for lung nodule followup. Solid nodules Solitary nodule size: <6 mm * low risk patients: no follow-up needed * high risk patients: optional CT at 12 months Solitary nodule size: 6-8 mm * low risk patients: follow-up at 6-12 months, then consider further follow-up at 18-24 months * high risk patients: initial follow-up CT at 6-12 months and then at 18-24 months if no change Solitary nodule size: >8 mm * either low or high risk patients * consider follow-up CT at 3 months, and/or CT-PET, and/or biopsy Multiple nodules size: <6 mm * low risk patients: no routine follow-up * high risk patients: optional CT at 12 months Multiple nodules size: 6-8 mm * low risk patients: follow-up at 3-6 months, then consider further follow-up at 18-24 months * high risk patients: follow-up at 3-6 months, then at 18-24 months if no change Multiple nodules size: >8 mm * low risk patients: follow-up at 3-6 months, then consider further follow-up at 18-24 months * high risk patients: follow-up at 3-6 months, then at 18-24 months if no change Recommendations do not apply to lung cancer screening, patient's with immunosuppression or patients w ith known primary cancer. Reviewed by: Kaylee Emanuel MD, PhD on 05/04/2020 9:55 AM PST Approved by: Kaylee Emanuel MD, PhD on 05/04/2020 9:55 AM PST Station ID: [id number]
== END 2020-05-04 02:48 | disposition home or self-care (01) ==
LOC: EDUNIT# → ED 23:51
DX: M54.5 Low back pain (principal); F41.9 Anxiety disorder, unspecified
CPT/HCPCS: 74176; 96374; 96375; 99283; 99284; J1170

== ENCOUNTER 2021-12-25 05:22 | Emergency (ER) | payer SELFPAY ==
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
[2021-12-25] MEDS ORDERED: NALOXONE 0.4 MG/ML VIAL IVP STA (05:29)
[2021-12-25 05:35] LABS: BASOPHILS % (AUTO) 0.4 %; EOSINOPHILS # (AUTO) 0.1 10^3/uL (0.0-2.0); EOSINOPHILS % (AUTO) 1.2 %; HCT - HEMATOCRIT 44.8 % (45.0-65.0); HGB - HEMOGLOBIN 15.9 g/dL (15.0-24.0); LYMPHOCYTES % (AUTO) 39.4 %; MEAN CORPUSCULAR HEMOGLOBIN 30.8 pg (30.0-42.0); MEAN CORPUSCULAR HGB CONC 35.5 g/dL (32.0-36.0); MEAN CORPUSCULAR VOLUME 86.8 fL (95.0-115.0); MEAN PLATELET VOLUME 9.7 fL; MONOCYTES # (AUTO) 0.8 10^3/uL (0.0-3.5); NEUTROPHILS # (AUTO) 3.7 10^3/uL (6.0-23.5); NEUTROPHILS % (AUTO) 48.6 %; PLT - PLATELET COUNT 207 10^3/uL (130-450); RED BLOOD COUNT 5.16 10^6/uL (4.10-6.70); WHITE BLOOD COUNT 7.5 x10^3/uL (9.0-30.0)
[2021-12-25 05:48] LABS: ALBUMIN 4.5 g/dL (3.2-5.5); ALBUMIN/GLOBULIN RATIO 1.5 (1.0-2.2); ALKALINE PHOSPHATASE 92 IU/L (42-121); ALT ALANINE AMINOTRANSFERASE 34 IU/L (10-60); AST ASPARTATE AMINOTRANSFERASE 24 IU/L (10-42); BILIRUBIN,TOTAL 0.7 mg/dL (0.2-1.0); BUN - BLOOD UREA NITROGEN 16 mg/dL (6-20); CALCIUM 9.3 mg/dL (8.5-10.3); CARBON DIOXIDE - CO2 27 mmol/L (21-32); CHLORIDE 101 mmol/L (101-111); ETOH - ETHANOL < 5.0 mg/dL; GFR - MDRD 90 (>89); GLUCOSE 97 mg/dL (70-100); LIPASE 28 U/L (22-51); POTASSIUM 3.6 mmol/L (3.5-5.0); SODIUM 138 mmol/L (135-145); TOTAL PROTEIN 7.6 g/dL (6.7-8.2)
[2021-12-25 06:41] LABS: BILIRUBIN,URINE NEGATIVE (NEGATIVE); GLUCOSE, URINE (UA) NEGATIVE (NEGATIVE); KETONES,URINE (UA) NEGATIVE (NEGATIVE); LEUKOCYTE ESTERASE, URINE NEGATIVE (NEGATIVE); MUDS CUTOFF CONCENTRATIONS CUTOFF CONC BELOW:; NITRITE,URINE NEGATIVE (NEGATIVE); OCCULT BLOOD,URINE NEGATIVE (NEGATIVE); PROTEIN,URINE NEGATIVE (NEGATIVE); UROBILINOGEN,URINE 0.2 (NORMAL) E.U./dL (NORMAL)
[2021-12-25 06:42] LABS: CLARITY,URINE CLEAR (CLEAR)
[2021-12-25 06:52] LABS: AMPHETAMINE SCREEN,URINE NEGATIVE (NEGATIVE); BARBITURATE SCREEN,UR NEGATIVE (NEGATIVE); BENZODIAZEPINES SCREEN, URINE NEGATIVE (NEGATIVE); COCAINE SCREEN URINE NEGATIVE (NEGATIVE); METHADONE SCREEN, URINE NEGATIVE (NEGATIVE); METHAMPHETAMINES SCREEN, URINE NEGATIVE (NEGATIVE); OPIATE SCREEN, URINE NEGATIVE (NEGATIVE); OXYCODONE SCREEN, URINE NEGATIVE (NEGATIVE); PROPOXYPHENE SCREEN, URINE NEGATIVE (NEGATIVE); THC CANNABINOID SCREEN, URINE NEGATIVE (NEGATIVE); TRICYCLIC ANTIDEPRESSANT,URINE NEGATIVE (NEGATIVE)
--- NOTE | 2021-12-25 08:58 | CT Report ---
PROCEDURE: HEAD WO INDICATIONS: AMS TECHNIQUE: Noncontrast 4.5 mm thick angled axial sections acquired from the foramen magnum to the vertex. For r adiation dose reduction, the following was used: automated exposure control, adjustment of mA and/or kV according to patient size. COMPARISON: Correlation is made with the accompanying cervical spine CT, 12/25/2021. FINDINGS: Image quality: There is streak artifact seen through the skull base. CSF spaces: Basal cisterns are patent. No extra-axial fluid collections. Ventricles are normal in size and shape. Brain: No midline shift. No intracranial masses or hemorrhage. Kan-white matter interface is norm al. Skull and face: Calvarium and visualized facial bones are intact, without suspicious lesions. Sinuses: Visualized sinuses and mastoids are clear. IMPRESSION: No significant intracranial abnormality is seen. Note: No significant discrepancy from the preliminary report. Reviewed by: William Inman MD on 12/25/2021 7:57 AM ANDIE Approved by: William Inman MD on 12/25/2021 7:57 AM ANDIE Station ID: [id number]
--- NOTE | 2021-12-25 08:59 | CT Report ---
PROCEDURE: CERVICAL SPINE WO INDICATIONS: AMS, possible fall TECHNIQUE: Noncontrast 3 mm thick sections acquired from the skull base to the T4 level. Sagittal and coronal r eformats were then constructed. For radiation dose reduction, the following was used: automated exp osure control, adjustment of mA and/or kV according to patient size. COMPARISON: Correlation is made with the accompanying head CT, 12/25/2021. FINDINGS: Image quality: Excellent. Bones: No fractures or dislocations. Visualized superior ribs are intact. Soft tissues: Prevertebral soft tissues are normal in thickness. No paravertebral hematomas. No ap ical pneumothoraces. IMPRESSION: Negative for fracture. Note: No significant discrepancy from the preliminary report. Reviewed by: William Inman MD on 12/25/2021 7:58 AM ANDIE Approved by: William Inman MD on 12/25/2021 7:58 AM ANDIE Station ID: [id number]
[2021-12-25 09:20] VITALS: BP 139/80
[2021-12-25] MEDS ORDERED: DEXAMETHASONE 10 MG/ML VIAL PO STA (10:12)
[2021-12-25] MEDS ORDERED: CHERRY SYRUP 10 ML UDC PO ONE (10:12)
[2021-12-25] MEDS ORDERED: GABAPENTIN 100 MG CAPSULE PO STA (10:13)
== END 2021-12-25 10:38 | disposition home or self-care (01) ==
LOC: EDBD → MERGE 05:22 → ED 05:22
DX: R55 Syncope and collapse (principal); M54.31 Sciatica, right side
CPT/HCPCS: 36415; 51701; 70450; 72125; 80053; 80306; 80320; 81003; 83690; 85025; 93005; 96374; 99284; A9270; 81001; 87086

== ENCOUNTER 2022-04-12 08:38 | Emergency (ER) | payer MEDICAID, OTHER ==
[2022-04-12] MEDS ORDERED: SODIUM CHLORIDE 0.9% 1,000 ML IV STA (08:57)
[2022-04-12] MEDS ORDERED: PROMETHAZINE INJ 25 MG in SODIUM CHLORIDE 0.9% 50 ML IV STA (08:57)
[2022-04-12] MEDS ORDERED: KETOROLAC 30 MG/ML VIAL IVP STA (08:57)
[2022-04-12] MEDS ORDERED: HYDROmorphone 0.5 MG/0.5 ML SYRINGE IVP STA (08:58)
--- NOTE | 2022-04-12 09:01 | ED Physician Documentation ---
History of Present Illness - Stated complaint Stated Complaint: HEAD PX - Chief complaint Chief Complaint: Neuro - History obtained from History obtained from: Patient - Additonal information Additional information: Patient comes to the emergency department chief complaint of headache for 4 days. He has a history of migraines and states this feels similar but his dragged on for a longer period he states he has been nauseated and occasionally vomiting, with the last time being in the car on the way here. He denies any head trauma. No fevers or chills. He is otherwise fairly healthy. No other complaints at this time. He has been taking ibuprofen at home and it's not helping. Review of Systems Constitutional: reports: Reviewed and negative Eyes: reports: Reviewed and negative Ears: reports: Reviewed and negative Nose: reports: Reviewed and negative Throat: reports: Reviewed and negative Cardiac: reports: Reviewed and negative Respiratory: reports: Reviewed and negative GI: reports: Nausea, Vomiting : reports: Reviewed and negative Skin: reports: Reviewed and negative Musculoskeletal: reports: Reviewed and negative Neurologic: reports: Headache Psychiatric: reports: Reviewed and negative Endocrine: reports: Reviewed and negative Immunocompromised: reports: Reviewed and negative PD PAST MEDICAL HISTORY - Past Medical History : Kidney stones Psych: Anxiety Musculoskeletal: Chronic back pain - Past Surgical History Past Surgical History: No - Present Medications Home Medications: Ambulatory Orders Medication Instructions Recorded Confirmed Gabapentin [Neurontin] 300 mg PO TID #30 capsule 03/19/20 05/04/20 Cyclobenzaprine HCl 5 mg PO PRN PRN 05/04/20 05/04/20 Ibuprofen [Motrin] 800 mg PO PRN PRN 05/04/20 05/04/20 Cyclobenzaprine [Flexeril] 10 mg PO TID PRN #20 tablet 12/25/21 Gabapentin [Neurontin] 300 mg PO TID #77 cap 12/25/21 LORazepam [Ativan] 1 mg PO QPM PRN #10 tablet 12/25/21 - Allergies Allergies/Adverse Reactions: Allergies Allergy/AdvReac Type Severity Reaction Status Date / Time No Known Drug Allergies Allergy Verified 12/26/21 09:24 - Social History Does the pt smoke?: No Smoking Status: Never smoker Does the pt drink ETOH?: Yes Does the pt have substance abuse?: No - Immunizations Immunizations are current?: Yes - POLST Patient has POLST: No PD ED PE NORMAL - Vitals Vital signs reviewed: Yes - General General: Other (Alert, grossly oriented. The patient is grimacing and yelling out.) - HEENT HEENT: Atraumatic, PERRL, EOMI, Moist mucous membranes - Neck Neck: Supple, no meningeal sign, Other (Full range of motion of neck including with flexion.) - Cardiac Cardiac: RRR, No murmur - Respiratory Respiratory: No respiratory distress, Clear bilaterally - Abdomen Abdomen: Soft, Non tender, Non distended - Derm Derm: Normal color, Warm and dry, No rash - Extremities Extremities: No deformity - Neuro Neuro: Alert and oriented X 3 - Psych Psych: Normal mood, Normal affect Results - Vitals Vitals: Vital Signs - 24 hr 04/12/22 04/12/22 08:50 10:43 Temperature 37.2 C 36.7 C Heart Rate 76 82 Respiratory 23 18 Rate Blood Pressure 147/86 H 127/83 H O2 Saturation 100 100 Oxygen O2 Source Room air PD Medical Decision Making - ED course Complexity details: considered differential, d/w patient ED course: The patient had a history of migraines and reported that this headache felt the same. There is nothing new or different and his physical exam was fairly benign, other than that the patient was quite expressive with his discomfort. He was given a liter of IV fluid, as well as a dose of Toradol and small doses of Phenergan and Dilaudid. The patient was much better after symptomatic treatment. He was neurologically intact and had been and displayed no meningeal signs. I felt he was stable for discharge home. We have discussed home management of the symptoms, as well as the usual indications for return. Departure - Departure Disposition: 01 Home, Self Care Clinical Impression: Migraine Qualifiers: Migraine type: unspecified Status migrainosus presence: without status migrainosus Intractability: not intractable Qualified Code(s): G43.909 - Migraine, unspecified, not intractable, without status migrainosus Condition: Stable Instructions: ED Headache Migraine Print Language: Grenadian Discharge Date/Time: 04/12/22 10:46
[2022-04-12 10:45] VITALS: BP 127/83
== END 2022-04-12 10:46 | disposition home or self-care (01) ==
LOC: ED 08:38
DX: G43.909 Migraine, unspecified, not intractable, without status migrainosus (principal)
CPT/HCPCS: 96365; 96375; 99284; J1170; J7040

== ENCOUNTER 2022-04-13 15:16 | Emergency (ER) | payer SELFPAY ==
[2022-04-13] MEDS ORDERED: KETOROLAC 15 MG/ML VIAL IVP STA (15:39)
[2022-04-13] MEDS ORDERED: METOCLOPRAMIDE 10 MG/2 ML VIAL IVP STA (15:39)
--- NOTE | 2022-04-13 15:41 | ED Physician Documentation ---
PD HPI HEADACHE - Stated complaint Stated Complaint: HEAD/FACE PX - Chief complaint Chief Complaint: Neuro - History obtained from History obtained from: Patient - Additional information Additional information: 27-year-old gentleman with history of sciatica. And migraines presents with his typical migraine. He was here yesterday for it, got better with medications. He states that he was given a prescription however the chart does not show that he was given a prescription but then states he went to the drugstore to fill the prescription but could not afford it. Regardless the frontal headache came back this morning, gradual in onset. Not the worst headache of his life. It is associated with nausea and vomiting and light sensitivity. There are no fevers with it. Note made that the history was taken with the aid of the [employer] datawarehouse developer tablet. Review of Systems Constitutional: denies: Fever Cardiac: denies: Chest pain / pressure, Palpitations Respiratory: denies: Dyspnea, Cough Neurologic: denies: Head injury, LOC PD PAST MEDICAL HISTORY - Past Medical History : Kidney stones Psych: Anxiety Musculoskeletal: Chronic back pain - Past Surgical History Past Surgical History: No - Present Medications Home Medications: Ambulatory Orders Medication Instructions Recorded Confirmed Gabapentin [Neurontin] 300 mg PO TID #30 capsule 03/19/20 05/04/20 Cyclobenzaprine HCl 5 mg PO PRN PRN 05/04/20 05/04/20 Ibuprofen [Motrin] 800 mg PO PRN PRN 05/04/20 05/04/20 Cyclobenzaprine [Flexeril] 10 mg PO TID PRN #20 tablet 12/25/21 Gabapentin [Neurontin] 300 mg PO TID #77 cap 12/25/21 LORazepam [Ativan] 1 mg PO QPM PRN #10 tablet 12/25/21 - Allergies Allergies/Adverse Reactions: Allergies Allergy/AdvReac Type Severity Reaction Status Date / Time No Known Drug Allergies Allergy Verified 12/26/21 09:24 - Social History Does the pt smoke?: No Smoking Status: Never smoker Does the pt drink ETOH?: Yes Does the pt have substance abuse?: No - Immunizations Immunizations are current?: Yes - POLST Patient has POLST: No PD ED PE NORMAL - Vitals Vital signs reviewed: Yes - General General: Alert and oriented X 3, Other (Dramatic pain behavior, at times he is he appears very comfortable, at times he is clutching his head and moaning.) - HEENT HEENT: PERRL, EOMI - Neck Neck: Supple, no meningeal sign, No bony TTP - Neuro Neuro: Alert and oriented X 3, salesperson books 2-12 intact, No motor deficit, No sensory deficit, Normal speech Eye Opening: Spontaneous Motor: Obeys Commands Verbal: Oriented GCS Score: 15 Results - Vitals Vitals: Vital Signs - 24 hr 04/13/22 15:24 Temperature 36.4 C L Heart Rate 96 Respiratory 16 Rate Blood Pressure 125/80 O2 Saturation 96 Oxygen O2 Source Room air - Labs Labs: Laboratory Tests 04/13/22 15:49 Ethyl Alcohol < 5.0 PD Medical Decision Making - ED course ED course: The headache is gradual in onset and similar to prior headaches. As such I doubt subarachnoid hemorrhage. There are no infectious symptoms such as fever or stiff neck to make me suspect meningitis. No carbon monoxide exposure by history. Initially was administered IV Toradol and Reglan. I reassessed him at approximately 4:35 PM at which time he was sleeping comfortably. I woke him up to see how he was doing and after moments of looking around he started moaning again. We used the [employer] datawarehouse developer again and he stated that his headache was better but now his eyes were itchy. His headache was not all the way gone. We discussed his ability to last picker any prescription medications after his emergency department visit and it sounds like he does not have any resources to last picker a prescription. Departure - Departure Disposition: 01 Home, Self Care Clinical Impression: Migraine Qualifiers: Migraine type: without aura Status migrainosus presence: with status migrainosus Intractability: intractable Qualified Code(s): G43.011 - Migraine without aura, intractable, with status migrainosus Condition: Good Record reviewed to determine appropriate education?: Yes Instructions: ED Headache Migraine Print Language: [place] Comments: Call your doctor to arrange a follow-up appointment, make the next available appointment. In the interim, return anytime if worse or if new symptoms develop. Llame a camilo mdico para concertar judith lia de seguimiento, programe la prxima lia disponible. Mientras tanto, regrese en cualquier momento si empeora o si se desarrollan nuevos sntomas.
[2022-04-13] MEDS ORDERED: SUMAtriptan 6 MG/0.5 ML VIAL SUBQ STA (16:40)
[2022-04-13 17:14] VITALS: BP 126/76
== END 2022-04-13 17:13 | disposition home or self-care (01) ==
LOC: ED 15:16
DX: G43.011 Migraine without aura, intractable, with status migrainosus (principal)
CPT/HCPCS: 36415; 80320; 96372; 96374; 96375; 99283; J2765

== ENCOUNTER 2022-04-18 08:12 | Emergency (ER) | payer SELFPAY ==
[2022-04-18] MEDS ORDERED: SODIUM CHLORIDE 0.9% 1,000 ML IV STA (09:16)
[2022-04-18] MEDS ORDERED: MORPHINE 2 MG/ML CARPUJECT IVP STA (09:16)
[2022-04-18] MEDS ORDERED: ONDANSETRON 4 MG/2 ML VIAL IVP STA (09:16)
--- NOTE | 2022-04-18 09:32 | XRAY Report ---
PROCEDURE: Chest 1 View X-Ray INDICATIONS: pain TECHNIQUE: One view of the chest was acquired. COMPARISON: None. FINDINGS: Surgical changes and devices: None. Lungs and pleura: No pleural effusions or pneumothorax. Lungs are clear. Mediastinum: Mediastinal contours appear normal. Heart size is normal. Bones and chest wall: No suspicious bony lesions. Overlying soft tissues appear unremarkable. IMPRESSION: No acute pulmonary process. Reviewed by: Ledy Edwards MD on 04/18/2022 9:30 AM [facility] Approved by: Ledy Edwards MD on 04/18/2022 9:30 AM [facility] Station ID: [id number]
[2022-04-18 09:35] LABS: BASOPHILS % (AUTO) 0.3 %; EOSINOPHILS # (AUTO) 0.2 10^3/uL (0.0-0.7); EOSINOPHILS % (AUTO) 1.9 %; HCT - HEMATOCRIT 41.9 % (42.0-52.0); HGB - HEMOGLOBIN 15.7 g/dL (14.0-18.0); LYMPHOCYTES % (AUTO) 35.3 %; MEAN CORPUSCULAR HEMOGLOBIN 30.5 pg (27.0-31.0); MEAN CORPUSCULAR HGB CONC 37.5 g/dL (32.0-36.0); MEAN CORPUSCULAR VOLUME 81.5 fL (80.0-94.0); MEAN PLATELET VOLUME 9.3 fL (7.4-11.4); MONOCYTES # (AUTO) 0.7 10^3/uL (0.0-1.0); MONOCYTES % (AUTO) 8.5 %; NEUTROPHILS # (AUTO) 4.6 10^3/uL (1.5-6.6); NEUTROPHILS % (AUTO) 53.7 %; PLT - PLATELET COUNT 223 10^3/uL (130-450); RED BLOOD COUNT 5.14 10^6/uL (4.70-6.10); RED CELL DISTRIBUTION WIDTH 11.4 % (12.0-15.0); WHITE BLOOD COUNT 8.6 x10^3/uL (4.8-10.8)
[2022-04-18 09:52] LABS: ALBUMIN 4.3 g/dL (3.2-5.5); ALBUMIN/GLOBULIN RATIO 1.4 (1.0-2.2); BILIRUBIN,TOTAL 0.9 mg/dL (0.2-1.0); CALCIUM 8.7 mg/dL (8.5-10.3); POTASSIUM 3.5 mmol/L (3.5-5.0); TOTAL PROTEIN 7.3 g/dL (6.7-8.2)
[2022-04-18] MEDS ORDERED: iohexoL-300 100 ML VIAL ONE (10:41)
--- NOTE | 2022-04-18 14:17 | CT Report ---
PROCEDURE: ABDOMEN/PELVIS W INDICATIONS: upper abd pain CONTRAST: 100ml Omnipaque TECHNIQUE: After the administration of IV contrast, 5 mm thick sections acquired from the diaphragms to the symp hysis. 5 mm thick coronal and sagittal reformats were acquired. For radiation dose reduction, the f ollowing was used: automated exposure control, adjustment of mA and/or kV according to patient size. COMPARISON: CT abdomen pelvis 2-21 FINDINGS: Image quality: Excellent. ABDOMEN: Lung bases: Lung bases are clear. Heart size is normal. Solid organs: Liver is enlarged measuring 19.9 cm with steatosis. The spleen is Normal in size and e nhancement. Gallbladder is unremarkable Biliary system is non dilated. Pancreas enhances normally. No adrenal nodules. Kidneys demonstrate normal size and enhancement, without hydronephrosis. Peritoneum and bowel: Bowel loops demonstrate normal wall thickness and caliber. No free fluid or a ir. Appendix is normal. Nodes and vessels: No retroperitoneal or mesenteric adenopathy by size criteria. Aorta and inferior vena cava are normal in size. Miscellaneous: No ventral hernias. Moderate hiatal hernia. PELVIS: Genitourinary: Bladder wall thickness is normal. Miscellaneous: No inguinal hernias or adenopathy. Bones: No suspicious bony lesions. No vertebral body compression fractures. IMPRESSION: No acute intra-abdominal or pelvic process. Reviewed by: Ledy Edwards MD on 04/18/2022 2:16 PM PST Approved by: Ledy Edwards MD on 04/18/2022 2:16 PM PST Station ID: [id number]
[2022-04-18] MEDS ORDERED: LIDOCAINE VISCOUS 2% 15 ML ORAL SYRINGE MM STA (14:47)
[2022-04-18] MEDS ORDERED: MAG HYDROX/AL HYDROX/SIMETH 30 ML UDC PO STA (14:47)
--- NOTE | 2022-04-18 14:53 | ED Physician Documentation ---
PD HPI ABD PAIN - Stated complaint Stated Complaint: ABD PX/SOA - Chief complaint Chief Complaint: Cardiac - History obtained from History obtained from: Patient, Other (american sign language interpreter) - Additional information Additional information: Patient is a 27-year-old male with a history of migraine headaches presenting for evaluation of sharp epigastric pain that radiates to his chest that started this morning. He reports that it is a burning sensation. He has the feelings of needing to burp but that does not resolve his pain.He denies vomiting but reports nausea. He reports that the pain makes him feel short of breath. He denies recent fever, cough. He reports having meatFor dinner last night. He denies a history of indigestion in the past. He denies diarrhea or constipation. He denies a history of prior abdominal surgeries. Video spanish interpreter service was used to obtain history as well as to reevaluate the patient. Review of Systems Constitutional: denies: Fever Cardiac: reports: Chest pain / pressure Respiratory: denies: Cough GI: reports: Abdominal Pain, Nausea. denies: Vomiting Musculoskeletal: denies: Back pain Neurologic: denies: Headache PD PAST MEDICAL HISTORY - Past Medical History : Kidney stones Psych: Anxiety Musculoskeletal: Chronic back pain - Past Surgical History Past Surgical History: No - Present Medications Home Medications: Ambulatory Orders Medication Instructions Recorded Confirmed Gabapentin [Neurontin] 300 mg PO TID #30 capsule 03/19/20 05/04/20 Cyclobenzaprine HCl 5 mg PO PRN PRN 05/04/20 05/04/20 Ibuprofen [Motrin] 800 mg PO PRN PRN 05/04/20 05/04/20 Cyclobenzaprine [Flexeril] 10 mg PO TID PRN #20 tablet 12/25/21 Gabapentin [Neurontin] 300 mg PO TID #77 cap 12/25/21 LORazepam [Ativan] 1 mg PO QPM PRN #10 tablet 12/25/21 Famotidine [Pepcid] 20 mg PO BID #60 tablet 04/18/22 - Allergies Allergies/Adverse Reactions: Allergies Allergy/AdvReac Type Severity Reaction Status Date / Time No Known Drug Allergies Allergy Verified 12/26/21 09:24 - Social History Does the pt smoke?: No Smoking Status: Never smoker Does the pt drink ETOH?: Yes Does the pt have substance abuse?: No - Immunizations Immunizations are current?: Yes - POLST Patient has POLST: No PD ED PE NORMAL - General General: Alert and oriented X 3, No acute distress, Well developed/nourished - HEENT HEENT: Atraumatic - Neck Neck: Supple, no meningeal sign - Cardiac Cardiac: RRR, No murmur, Other (No crepitus) - Respiratory Respiratory: No respiratory distress, Clear bilaterally - Abdomen Abdomen: Soft, Non distended, Other (Epigastric And left upper quadrant tenderness to palpation) - Derm Derm: Warm and dry - Extremities Extremities: No edema - Neuro Neuro: Normal speech Results - Vitals Vitals: Vital Signs - 24 hr 04/18/22 04/18/22 04/18/22 08:30 10:03 12:00 Temperature 37.2 C Heart Rate 81 70 73 Respiratory 18 24 14 Rate Blood Pressure 136/78 H 120/75 152/87 H O2 Saturation 100 95 97 04/18/22 04/18/22 14:30 15:00 Temperature Heart Rate 83 78 Respiratory 16 18 Rate Blood Pressure 118/80 110/60 O2 Saturation 98 99 Oxygen O2 Source Room air - EKG (time done) 0843 Rate: Rate (enter#) (85) Rhythm: NSR Ischemia: T wave inversion. No: ST elevation c/w ischemia - Labs Labs: Laboratory Tests 04/18/22 04/18/22 04/18/22 09:26 09:26 09:26 WBC 8.6 RBC 5.14 Hgb 15.7 Hct 41.9 L MCV 81.5 MCH 30.5 MCHC 37.5 H RDW 11.4 L Plt Count 223 MPV 9.3 Neut # (Auto) 4.6 Lymph # (Auto) 3.0 [place] # (Auto) 0.7 Eos # (Auto) 0.2 Baso # (Auto) 0.0 Absolute Nucleated RBC 0.00 Nucleated RBC % 0.0 Sodium 126 L Potassium 3.5 Chloride 95 L Carbon Dioxide 19 L Anion Gap 12.0 BUN 13 Creatinine 1.0 Estimated GFR (MDRD) 90 Glucose 94 Calcium 8.7 Total Bilirubin 0.9 AST 32 ALT 52 Alkaline Phosphatase 70 Troponin I High Sens < 2.3 L Total Protein 7.3 Albumin 4.3 Globulin 3.0 Albumin/Globulin Ratio 1.4 Lipase 26 PD Medical Decision Making - ED course Complexity details: reviewed results, re-evaluated patient, d/w patient ED course: Patient is a 27-year-old male presenting for evaluation of epigastric pain. His vital signs are stable.Labs reviewed which are significant for hyponatremia. No prior for comparison. Patient does report drinking a lot of water.EKG reviewed and high-sensitivity troponin is negative. Low concern for ACS based on patient's age and atypical features of his.Abdominal imaging was ordered and unremarkable. Patient is feeling better with medications here. Discussed possible etiologies for his pain which include peptic ulcer disease versus GERD versus other process. Encourage close follow-up with PCP and may need GI referral and recommend Avoiding foods that may trigger acid reflux. Patient is comfortable with this plan and is ambulatory at discharge. Departure - Departure Disposition: 01 Home, Self Care Clinical Impression: Epigastric abdominal pain, Hyponatremia Condition: Stable Instructions: GERD Lifestyle Changes, ED Abdominal Pain Unkn Cause Male Follow-Up: Siobhan Sal PA [Provider Admit Priv/Credential] - Prescriptions: Famotidine [Pepcid] 20 mg PO BID #60 tablet Comments: It is unclear what is causing your symptoms at this time but could be related to an ulcer or indigestion. I am going to start you on a medicine to help reduce acid in your stomach and have also given you information to help reduce acid in your diet. I would also recommend close follow-up with your primary care provider and have listed the name of 1 that you can call for close follow-up. Your salt level was also low today. This can happen from drinking too much water. I would reduce the amount of water that you are drinking and have your labs rechecked. If you are having trouble getting into the primary care office then I would go to the walk-in clinic. I have sent your prescription to [facility] in [place]. Discharge Date/Time: 04/18/22 15:21
[2022-04-18] MEDS ORDERED: FAMOTIDINE 20 MG/2 ML VIAL IVP STA (14:58)
[2022-04-18 15:03] VITALS: BP 110/60
[2022-04-18] MEDS ORDERED: iohexoL-300 100 ML VIAL IVP ONE (15:36)
== END 2022-04-18 15:21 | disposition home or self-care (01) ==
LOC: ED 08:12
DX: R10.13 Epigastric pain (principal); E87.1 Hypo-osmolality and hyponatremia
CPT/HCPCS: 36415; 71045; 74177; 80053; 83690; 84484; 85025; 93005; 96361; 96374; 96375; 99284; A9270; Q9967

== ENCOUNTER 2022-08-01 21:08 | Emergency (ER) | payer SELFPAY ==
[2022-08-01 21:24] VITALS: BP 130/64
[2022-08-01] MEDS ORDERED: IBUPROFEN 800 MG TABLET PO STA (22:55)
[2022-08-01] MEDS ORDERED: CYCLOBENZAPRINE 10 MG TABLET PO STA (22:55)
--- NOTE | 2022-08-01 23:02 | ED Physician Documentation ---
History of Present Illness - Stated complaint Stated Complaint: DIGESTIVE ISSUE - Chief complaint Chief Complaint: Abd Pain - History obtained from History obtained from: Patient - Additonal information Additional information: The pt comes to the ED with CC of intermittent LUQ abd pain. He also states he keeps getting a sensation of air traveling up from his feet into his head. He states that when he feels the air traveling through his body, he starts to feel scared, and his heart rate speeds up. The pt also has been constipated recently, and has had a BM only once every other day. He states his stools are firm and difficult to push out at times. All of the symptoms have been going on for the past several weeks. He states he was on citalopram previously for anxiety, and this was helpful. It is not clear who started the med for the pt, as he does not have a PCP. No CP or SOB. No vomiting. PD PAST MEDICAL HISTORY - Past Medical History : Kidney stones Psych: Anxiety Musculoskeletal: Chronic back pain - Past Surgical History Past Surgical History: No - Present Medications Home Medications: Ambulatory Orders Medication Instructions Recorded Confirmed Citalopram Hydrobromide [Celexa] 20 mg PO DAILY #30 tablet 08/01/22 Citalopram [CeleXA] 10 mg PO DAILY 08/01/22 08/01/22 Cyclobenzaprine [Flexeril] 10 mg PO TID PRN #20 tablet 08/01/22 Docusate Sodium 100Mg Capsule 200 mg PO DAILY #30 cap 08/01/22 [Colace 100Mg Capsule] - Allergies Allergies/Adverse Reactions: Allergies Allergy/AdvReac Type Severity Reaction Status Date / Time No Known Drug Allergies Allergy Verified 12/26/21 09:24 - Social History Does the pt smoke?: No Smoking Status: Never smoker Does the pt drink ETOH?: Yes Does the pt have substance abuse?: No - Immunizations Immunizations are current?: Yes - POLST Patient has POLST: No PD ED PE NORMAL - Vitals Vital signs reviewed: Yes - General General: Alert and oriented X 3, No acute distress, Well developed/nourished - HEENT HEENT: Atraumatic, PERRL, EOMI, Moist mucous membranes - Neck Neck: Supple, no meningeal sign - Cardiac Cardiac: RRR, No murmur, Strong equal pulses - Respiratory Respiratory: No respiratory distress, Clear bilaterally - Abdomen Abdomen: Soft, Non tender, Non distended - Derm Derm: Normal color, Warm and dry, No rash - Extremities Extremities: No deformity - Neuro Neuro: Alert and oriented X 3 - Psych Psych: Normal mood, Normal affect Results - Vitals Vitals: Oxygen O2 Source Room air PD Medical Decision Making - ED course Complexity details: reviewed old records, reviewed results, re-evaluated patient, considered differential, d/w patient ED course: The pt was Tanzanian-speaking only, and communication was entirely through an president and ceo. The pt was very fixated on the notion that air was traveling through his body, and I spent a lot of time explaining to him that this is not possible, and trying to sort out what exactly he was feeling, and what might be causing it. I ultimately decided that symptomatic management would probably be best. It is not ideal for SSRI's to be prescribed from the ED, but since the pt reported it having been helpful before, and since it seemed this pt did not have good outpatient resources, I have restarted this for him. I have also recommended a stool softener, which has been prescribed. I have emphasized the importance of follow-up in primary care, and have given the pt some recommendations in this regard. Departure - Departure Disposition: 01 Home, Self Care Clinical Impression: Anxiety, Lumbar paraspinal muscle spasm Constipation Qualifiers: Constipation type: unspecified constipation type Qualified Code(s): K59.00 - Constipation, unspecified Condition: Stable Instructions: ED Exercises Lumbar Muscles, ED Spasm Back No Trauma, ED Constipation, ED Panic Attack Prescriptions: Citalopram Hydrobromide [Celexa] 20 mg PO DAILY #30 tablet Docusate Sodium 100Mg Capsule [Colace 100Mg Capsule] 200 mg PO DAILY #30 cap Cyclobenzaprine [Flexeril] 10 mg PO TID PRN #20 tablet PRN Reason: Spasms Print Language: [place]anian Comments: Your prescriptions have been electronically transmitted to the [facility] in [place] at your request. Discharge Date/Time: 08/01/22 23:14
== END 2022-08-01 23:14 | disposition home or self-care (01) ==
LOC: ED 21:08
DX: K59.00 Constipation, unspecified (principal); M62.830 Muscle spasm of back; F41.9 Anxiety disorder, unspecified; Z79.899 Other long term (current) drug therapy
CPT/HCPCS: 99282; 99283; A9270